=== PATIENT | male | born 1975 | race Caucasian/White ===

== ENCOUNTER 2023-11-20 20:50 | Emergency (ER) | payer MEDICAID ==
[~2023-11-20] VITALS: Ht 177.8 cm; Wt 107.0 kg
[2023-11-20 21:27] VITALS: O2SAT 100
[2023-11-21 03:21] VITALS: BP 177/124; PULSE 70; RESP 15; TEMP 36.94740; O2SAT 99
== END 2023-11-21 03:27 | disposition home or self-care (01) ==
LOC: ER 20:50
DX: Z00.00 Encounter for general adult medical examination without abnormal findings (principal); I10 Essential (primary) hypertension
CPT/HCPCS: 99281

== ENCOUNTER 2024-02-24 21:39 | Emergency (ER) | payer MEDICAID ==
[~2024-02-24] VITALS: Ht 160 cm; Wt 137.0 kg
[2024-02-24 22:33] VITALS: TEMP 98.1; O2SAT 99
[2024-02-25 00:17] LABS: BASOPHILS % 0.3 % (0.0-2.0); CHLORIDE 110 mEq/L (98-107); HEMATOCRIT. 40.8 % (42.0-52.0); HEMOGLOBIN. 13.9 g/dL (14.0-18.0); LYMPHOCYTES % 51.1 % (20.0-50.0); MEAN CORPUSCULAR HEMOGLOBIN 29.7 pg (28.0-32.0); MEAN CORPUSCULAR HGB CONC 34.2 g/dL (31.0-37.0); MEAN CORPUSCULAR VOLUME 86.9 fL (80.0-94.0); MEAN PLATELET VOLUME 7.7 fl (7.4-10.4); MONOCYTES % 7.3 % (2.0-8.0); NEUTROPHILS % 39.3 % (40.0-76.0); PLATELET 209 x1000/uL (130-400); POTASSIUM 3.6 mEq/L (3.5-5.1); RED BLOOD CELL COUNT 4.69 mill/uL (4.7-6.1); RED CELL DISTRIBUTION WIDTH 14.3 % (11.6-14.6); SODIUM 142 mEq/L (136-145); WHITE BLOOD COUNT 6.5 x1000/uL (4.5-11.0)
[2024-02-25 00:18] LABS: CARBON DIOXIDE 26 mEq/L (21-32)
[2024-02-25 00:23] LABS: CREATININE 1.2 mg/dL (0.6-1.3); GLUCOSE 112 mg/dL (70-105); UREA NITROGEN BLOOD 21 mg/dL (9-23)
[2024-02-25 00:26] LABS: TROPONIN I HIGH SENSITIVITY 4 ng/L (3.0-53)
[2024-02-25 01:09] VITALS: BP 145/89; PULSE 92; RESP 17; O2SAT 100
== END 2024-02-25 01:10 | disposition home or self-care (01) ==
LOC: ER 21:39
DX: R60.0 Localized edema (principal)
CPT/HCPCS: 36415; 71045; 80048; 83880; 84484; 85025; 93005; 99285